=== PATIENT | female | born 1980 | race Caucasian/White ===

== ENCOUNTER 2017-07-02 08:12 | Emergency (ER) | payer SELFPAY ==
[~2017-07-02] VITALS: Ht 172.7 cm; Wt 68.0 kg
[2017-07-02 08:21] VITALS: BP 139/72
== END 2017-07-02 09:26 | disposition home or self-care (01) ==
LOC: ER 08:15
DX: K08.89 Other specified disorders of teeth and supporting structures (principal)
CPT/HCPCS: A4606; Z7610